=== PATIENT | female | born 1980 | race Caucasian/White ===

== ENCOUNTER 2017-01-12 07:34 | Emergency (ER) | payer OTHER ==
[2017-01-12] MEDS ORDERED: Tobramycin/dex OPTH 2.5 ML BOT ONE (07:56)
== END 2017-01-12 08:12 | disposition home or self-care (01) ==
LOC: BURERS 07:34
DX: H10.9 Unspecified conjunctivitis (principal); F41.9 Anxiety disorder, unspecified
CPT/HCPCS: 99282

== ENCOUNTER 2021-01-03 07:20 | Outpatient (CLI) | payer OTHER | END 2021-01-03 07:21 | disposition home or self-care (01) | LOC: BURCT 07:20 | PROVIDERS: ATTEND Family Medicine | DX: M54.12 Radiculopathy, cervical region (principal); M54.81 Occipital neuralgia; R51.9 Headache, unspecified; M43.8X2 Other specified deforming dorsopathies, cervical region | CPT/HCPCS: 70450; 72125 ==

== ENCOUNTER 2022-07-10 15:02 | Emergency (ER) | payer BC ==
[2022-07-10 15:16] LABS: #Basophils 0.1 thou/uL (0.0-0.2); #Lymphocytes 3.3 thou/uL (1.20-3.40); #Monocytes 0.5 thou/uL (0.11-0.59); #Neutrophils 5.4 thou/uL (1.40-6.50); %Basophils 0.9 % (0.0-1.0); %Eosinophils 0.4 % (0.0-10.0); %Monocytes 4.8 % (0.0-10.0); %Neutrophils 57.8 % (42.0-75.0); Hemoglobin 13.6 g/dL (12.0-16.0); Mean Corpuscular HGB CONC 33.5 g/dL (32.0-36.0); Mean Corpuscular Hemoglobin 32.8 pg (27.0-31.0); Mean Corpuscular Volume 97.7 fL (78.0-98.0); Mean Platelet Volume 7.3 fL (7.4-10.4); Platelet Count 293 thou/uL (130-400); RBC Distribution Width 11.5 % (11.5-14.5); Red Blood Cell (RBC) Count 4.16 mill/uL (4.20-5.40); White Blood Cell (WBC) Count 9.3 thou/uL (4.8-10.8)
[2022-07-10 15:32] LABS: ALT (SGPT) 11 U/L (8-55); AST (SGOT) 13 U/L (5-34); Albumin 4.3 g/dL (3.5-5.0); Alkaline Phosphatase 48 U/L (40-110); Anion Gap 10 mmol/L (10-20); BUN (Urea Nitrogen) 9 mg/dL (7.0-18.7); Bilirubin, Total 0.6 mg/dL (0.2-1.2); Calc. Creatinine Clearance 0 mL/min (70-130); Calcium 8.8 mg/dL (7.8-10.44); Carbon Dioxide 26 mmol/L (22-29); Chloride 105 mmol/L (98-107); Estimated GFR 91; Globulin 3.3 g/dL (2.4-3.5); Glucose 104 mg/dL (70-105); Potassium 3.1 mmol/L (3.5-5.1); Protein, Total 7.6 g/dL (6.0-8.3); Sodium 138 mmol/L (136-145)
[2022-07-10] MEDS ORDERED: Potassium Chloride 20 MEQ TAB ONE (16:11)
== END 2022-07-10 16:39 | disposition home or self-care (01) ==
LOC: BURERS 15:02
DX: R55 Syncope and collapse (principal); S00.03XA Contusion of scalp, initial encounter; E87.6 Hypokalemia; W22.8XXA Striking against or struck by other objects, initial encounter
CPT/HCPCS: 71045; 80053; 84484; 85025; 93005; 94760; 96360